=== PATIENT | male | born 1940 | race Caucasian/White ===

== ENCOUNTER 2019-05-16 00:26 | Emergency (ER) | payer BC ==
[~2019-05-16] VITALS: Ht 172.7 cm; Wt 99.8 kg
[2019-05-16 00:48] LABS: BASOPHILS # (AUTO) 0.1 /CMM (0.0-0.2); BASOPHILS % (AUTO) 1.5 % (0.0-2.0); EOSINOPHILS % (AUTO) 1.6 % (0.0-6.0); HEMATOCRIT 44 % (39-51); HEMOGLOBIN 14.9 g/dL (13.5-17.5); LYMPHOCYTES # (AUTO) 1.8 /CMM (0.8-4.8); LYMPHOCYTES % (AUTO) 25.4 % (20.0-44.0); MEAN CORPUSCULAR HGB CONC 34 g/dl (31.0-36.0); MEAN CORPUSCULAR VOLUME 91 fL (80-96); MONOCYTES # (AUTO) 0.7 /CMM (0.1-1.30); MONOCYTES % (AUTO) 9.6 % (2.0-12.0); NEUTROPHILS # (AUTO) 4.3 /CMM (1.8-8.9); NEUTROPHILS % (AUTO) 61.9 % (43.0-81.0); PLATELET COUNT (AUTO) 194 /CMM (150-450)
--- NOTE | 2019-05-16 00:48 | NUR ---
BLOOD DRAWN BY AMBULANCE DRIVER PARAMEDIC
[2019-05-16 00:49] LABS: APPEARANCE,URINE Clear (CLEAR); BILIRUBIN,URINE Negative (NEGATIVE); BLOOD, URINE Negative Ery/uL (NEGATIVE); COLOR,URINE Yellow (YELLOW); KETONES,URINE Negative (NEGATIVE); LEUKOCYTE ESTERASE ,URINE Negative (NEGATIVE); NITRITE, URINE Negative (NEGATIVE); PROTEIN,URINE Negative (NEGATIVE); UGLUCOSE Negative (NEGATIVE); UROBILINOGEN,URINE 0.2 EU/dL (0.2)
[2019-05-16 00:58] LABS: CALCIUM, SERUM 8.8 mg/dL (8.5-10.1); CARBON DIOXIDE 28 mmol/L (21-32); CHLORIDE 109 mmol/L (98-107); CREATININE 1.3 mg/dL (0.6-1.3); GLUCOSE 104 mg/dL (74-106); POTASSIUM 4.4 mmol/L (3.5-5.1); SODIUM SERUM 143 mmol/L (136-145); UREA NITROGEN, BLOOD 24 mg/dL (7-18)
[2019-05-16 01:01] LABS: ALANINE AMINOTRANSFERASE < 6 U/L (12-78); ALBUMIN 3.2 g/dL (3.4-5.0); ALCOHOL, BLOOD < 3 mg/dL (0-0); ALKALINE PHOSPHATASE 96 U/L (46-116); ASPARTATE AMINOTRANSFERASE 16 U/L (15-37); BILIRUBIN,DIRECT 0.1 mg/dL (0.0-0.2); BILIRUBIN,TOTAL 0.4 mg/dL (0.2-1.0); TOTAL PROTEIN, SERUM 6.1 g/dL (6.4-8.2)
--- NOTE | 2019-05-16 01:01 | NUR ---
XRAY AT BEDSIDE.
--- NOTE | 2019-05-16 01:01 | NUR ---
[place] FROM HOME. TO ER BED 9. AAOX2. NO RESP DISTRESS NOTED. AMBULATORY. BROUGHT IN ODD BEHAVIOR PER FAMILY. ACCORDING TO WHO WAS AT BEDSIDE. PT WOKE UP AT AROUND 11:30PM AND STARTED TO WANDER ARROUND THE HOUSE AND OUTSIDE. PT WAS SO COFUSED PER . PT HAS DX OF PARKINSONS AND DEMENTIA. DURING ASSESSMENT, PT IS COOPERATIVE AND COMPLIANT. BLOOD DRAW WAS DONE. WELL X RAY. MD WAS AT BEDSIDE FOR EVAL. ORDERS RECEIVED, NOTED AND CARRIED OUT
[2019-05-16 01:02] LABS: ACETAMINOPHEN 0 ug/ml (10-30); SALICYLATE < 0.2 mg/dL (2.8-20.0)
--- NOTE | 2019-05-16 01:03 | NUR ---
PTS REPORTS THAT THE PT STARTED SEROQUEL QHS 2 DAYS AGO.
--- NOTE | 2019-05-16 01:06 | NUR ---
NO SUICIDE PRECAUTION FOR PT. PT HAVE NO SUICIDAL IDEATIONS
--- NOTE | 2019-05-16 01:53 | NUR ---
NYDIA MUNOZ ON THE WAY
--- NOTE | 2019-05-16 01:55 | NUR ---
[phone] [facility] NEW NUMBER
--- NOTE | 2019-05-16 02:38 | NUR ---
BONITA (SON) [phone] PLEASE CALL FOR ANY UPDATE
--- NOTE | 2019-05-16 03:30 | NUR ---
PT SON BONITA CALLED FOR PT FACTORY CLERK. PT IS CLEARED BY ALEXANDER STAFFORD TO DC HOME W/ FAMILY
[2019-05-16 04:07] VITALS: BP 159/77
--- NOTE | 2019-05-16 04:07 | NUR ---
Patient discharged to home in stable condition. Written and verbal after care instructions given. Patient verbalizes understanding of instruction. Pt ambulatory with a steady gait
== END 2019-05-16 04:08 | disposition home or self-care (01) ==
LOC: ER 00:28
DX: G20 Parkinson's disease (principal); F02.80 Dementia in other diseases classified elsewhere, unspecified severity, without behavioral disturbance, psychotic disturbance, mood disturbance, and anxiety; R45.6 Violent behavior; I10 Essential (primary) hypertension
CPT/HCPCS: 36415; 70450; 71045; 80048; 80076; 80305; 80307; 80329; 81001; 85025; 99284; G0480; 81000-TC